=== PATIENT | female | born 1975 ===

== ENCOUNTER 2022-10-24 05:41 | Day surgery (SDC) | payer OTHER | END 2022-10-24 11:10 | disposition home or self-care (01) | LOC: AMB-ENDOS 05:41 | PROVIDERS: ATTEND Colon & Rectal Surgery | DX: D12.7 Benign neoplasm of rectosigmoid junction (principal); R19.5 Other fecal abnormalities; K64.8 Other hemorrhoids; E11.9 Type 2 diabetes mellitus without complications; Z20.822 Contact with and (suspected) exposure to COVID-19; Z79.84 Long term (current) use of oral hypoglycemic drugs ==